=== PATIENT | male | born 1955 | race Caucasian/White ===

== ENCOUNTER 2020-07-24 09:43 | Observation (INO) ==
[2020-07-24] MEDS ORDERED: Charcoal ACTIVATED 25 GM/120 ML BTL PO ONE (09:56)
[2020-07-24 11:08] LABS: ABS Eosinophils 0.1 10^3/ul (0-0.6); ABS Lymphocytes 1.9 10^3/ul (1.0-4.8); ABS Monocytes 0.7 10^3/ul (0-0.8); ABS Neutrophils 4.1 10^3/ul (1.5-7.7); Eosinophil % 1.4 %; Hematocrit 42 % (42-52); Hemoglobin 14.3 g/dL (14.0-18.0); Lymphocyte % 28.3 %; Mean Corpuscular HGB Conc 34 g/dL (31-36); Mean Corpuscular Hemoglobin 33 pg (27-31); Mean Corpuscular Volume 95 fL (80-94); Mean Platelet Volume 7.7 fL (7.4-10.4); Platelet Count 186 10^3/uL (150-450); Red Cell Distribution Width 14 % (10-15); White Blood Count 6.8 10^3/uL (3.5-10.8)
[2020-07-24 11:26] LABS: ALT 15 U/L (7-52); AST 18 U/L (13-39); Albumin 4.1 g/dL (3.2-5.2); Albumin/Globulin Ratio 1.5 (1-3); Alkaline Phosphatase 56 U/L (35-149); Anion Gap 6 mmol/L (2-11); Blood Urea Nitrogen 14 mg/dL (6-24); CO2 Carbon Dioxide 25 mmol/L (22-32); Calcium 9.3 mg/dL (8.6-10.3); Chloride 109 mmol/L (101-111); EGFR African American 165.2 (>60); EGFR Non-African American 136.5 (>60); Globulin 2.8 g/dL (2-4); Glucose 87 mg/dL (70-100); Potassium 4.1 mmol/L (3.5-5.0); Sodium 140 mmol/L (135-145); Total Protein 6.9 g/dL (6.4-8.9)
[2020-07-24] MEDS ORDERED: DIVALPROEX SODIUM 500 MG PO SCH ×2 (11:30→21:00)
[2020-07-24 11:40] LABS: Acetaminophen < 15 mcg/mL; Alcohol, S < 10 mg/dL (<10); Salicylate < 2.50 mg/dL (<30)
[2020-07-24] MEDS ORDERED: LORazepam 2 mg VIAL 1 ml IV PUSH ONE (11:52)
[2020-07-24] MEDS ORDERED: Lorazepam PYXIS KEY PRN (11:52)
[2020-07-24] MEDS ORDERED: Dextrose 50% Syringe 50 ml 25 GM/50 ML SYRINGE IV PUSH ONE (14:10)
[2020-07-24] MEDS ORDERED: Dextrose 50% Syringe 50 ml 25 GM/50 ML SYRINGE ONE (14:12)
[2020-07-24] MEDS ORDERED: Nicotine GUM 4MG FRUIT FLAVOR PO PRN (19:24)
[2020-07-25] MEDS ORDERED: Vitamin THERAPEUTIC TAB PO SCH (09:00)
[2020-07-25 14:22] VITALS: BP 143/73
== END 2020-07-25 13:20 ==
LOC: ED 09:43 → MEDTELE 09:43 → ED 12:44 → ICU 14:58
PROVIDERS: ADMIT Internal Medicine; ATTEND Internal Medicine Critical Care Medicine

== ENCOUNTER 2022-08-23 12:37 | Inpatient (IN) ==
[2022-08-23] MEDS ORDERED: LORazepam 2 mg VIAL 1 ml IM ONE (12:45)
[2022-08-23] MEDS ORDERED: Lactated Ringers 1000 ml BAG 1,000 ML IV ONE (12:58)
[2022-08-23] MEDS ORDERED: Lorazepam PYXIS KEY PRN (13:05)
[2022-08-23] MEDS ORDERED: LORazepam 2 mg VIAL 1 ml IV PUSH ONE (13:05)
[2022-08-23 13:30] LABS: ABS Lymphocytes 2.3 10^3/uL (1.0-4.8); ABS Monocytes 0.5 10^3/uL (0.0-1.1); ABS Neutrophils 4.4 10^3/uL (1.5-7.6); Eosinophil % 0.5 %; Hematocrit 42.5 % (38-53); Hemoglobin 14.7 g/dL (13.2-16.3); Lymphocyte % 31.6 %; Mean Corpuscular Hemoglobin 31.6 pg (27-33); Mean Corpuscular Hgb Conc 34.5 g/dL (31-36); Mean Corpuscular Volume 91.8 fL (80-97); Mean Platelet Volume 7.8 fL (7.5-11.2); Nucleated Red Blood Cells % 0.1 /100 WBC (0.0-0.4); Platelet Count 221 10^3/uL (150-450); Red Blood Count 4.63 10^6/uL (4.06-5.63); Red Cell Distribution Width 13.5 % (12-17); White Blood Count 7.3 10^3/uL (3.6-10.2)
[2022-08-23 13:49] LABS: ALT 12 U/L (7-52); AST 14 U/L (13-39); Albumin 4.2 g/dL (3.2-5.2); Albumin/Globulin Ratio 1.4 (1-3); Alkaline Phosphatase 66 U/L (35-149); Anion Gap 6 mmol/L (2-16); Blood Urea Nitrogen 16 mg/dL (6-24); CO2 Carbon Dioxide 26 mmol/L (22-32); Calcium 9.4 mg/dL (8.6-10.3); Chloride 107 mmol/L (101-111); Creatinine, Serum 0.58 mg/dL (0.67-1.17); Globulin 2.9 g/dL (2-4); Glucose 112 mg/dL (70-100); Potassium 4.2 mmol/L (3.5-5.0); Sodium 139 mmol/L (135-145); Total Protein 7.1 g/dL (6.4-8.9); eGFR CKD-EPI 108.9 (>60)
[2022-08-23 14:10] LABS: Acetaminophen < 15 mcg/mL; Alcohol, S < 13 mg/dL (<13); Salicylate < 2.50 mg/dL (<30); Valproic Acid < 13.0 mcg/mL (50-100)
[2022-08-23 14:19] LABS: TSH Ultra Thyroid Stim Horm 0.22 mcIU/mL (0.34-5.60)
[2022-08-23] MEDS ORDERED: Nicotine GUM 2MG FRUIT FLAVOR PO PRN (15:03)
[2022-08-23] MEDS ORDERED: Al Hydrox/Mg Hydrox/Simet LIQ 30 ML UDC PO PRN (15:03)
[2022-08-24] MEDS ORDERED: OLANZapine IM (NF) 10 MG VIAL IM ONE (11:07)
[2022-08-25] MEDS ORDERED: OLANZapine IM (NF) 10 MG VIAL IM ONE ×2 (09:50→09:57)
[2022-09-02] MEDS ORDERED: chlorproMAZINE 25 MG/ML 2 ML (50 MG) ONE (15:35)
[2022-09-02] MEDS ORDERED: chlorproMAZINE 25 MG/ML 2 ML (50 MG) IM ONE (15:40)
[2022-09-05] MEDS ORDERED: OLANZapine IM (NF) 10 MG VIAL IM PRN (10:34)
[2022-09-05 14:22] LABS: ABS Eosinophils 0.1 10^3/uL (0.0-0.5); ABS Lymphocytes 2.7 10^3/uL (1.0-4.8); ABS Monocytes 0.7 10^3/uL (0.0-1.1); ABS Neutrophils 6.6 10^3/uL (1.5-7.6); ABS Nucleated RBC 0.01 10^3/ul; Eosinophil % 0.6 %; Hematocrit 40.3 % (38-53); Hemoglobin 13.7 g/dL (13.2-16.3); Lymphocyte % 27.1 %; Mean Corpuscular Hemoglobin 31.5 pg (27-33); Mean Corpuscular Volume 92.6 fL (80-97); Mean Platelet Volume 7.7 fL (7.5-11.2); Platelet Count 208 10^3/uL (150-450); Red Blood Count 4.35 10^6/uL (4.06-5.63); Red Cell Distribution Width 12.6 % (12-17); White Blood Count 10.1 10^3/uL (3.6-10.2)
[2022-09-06 08:44] LABS: HDL Cholesterol 57.2 mg/dL
[2022-09-10 14:27] LABS: ABS Eosinophils 0.1 10^3/uL (0.0-0.5); ABS Lymphocytes 2.2 10^3/uL (1.0-4.8); ABS Monocytes 0.6 10^3/uL (0.0-1.1); ABS Neutrophils 4.9 10^3/uL (1.5-7.6); Eosinophil % 1.3 %; Hematocrit 38.8 % (38-53); Hemoglobin 13.5 g/dL (13.2-16.3); Mean Corpuscular Hemoglobin 31.5 pg (27-33); Mean Corpuscular Hgb Conc 34.7 g/dL (31-36); Mean Corpuscular Volume 90.9 fL (80-97); Mean Platelet Volume 7.3 fL (7.5-11.2); Platelet Count 220 10^3/uL (150-450); Red Blood Count 4.27 10^6/uL (4.06-5.63); Red Cell Distribution Width 12.8 % (12-17); White Blood Count 7.8 10^3/uL (3.6-10.2)
[2022-09-10 14:59] LABS: Albumin 3.8 g/dL (3.2-5.2); Albumin/Globulin Ratio 1.3 (1-3); CRP High Sensitivity 4.73 mg/L (<2.00); Calcium 9.4 mg/dL (8.6-10.3); Creatinine, Serum 0.5 mg/dL (0.67-1.17); Globulin 2.9 g/dL (2-4); Potassium 4.2 mmol/L (3.5-5.0); Total Bilirubin 0.3 mg/dL (0.2-1.0); Total Protein 6.7 g/dL (6.4-8.9); eGFR CKD-EPI 113.9 (>60)
[2022-09-10 16:28] LABS: Urine Appearance Clear; Urine Bilirubin Negative (Negative); Urine Blood Negative (Negative); Urine Color Yellow; Urine Glucose Negative (Negative); Urine Ketones Trace (Negative); Urine Nitrite Negative (Negative); Urine Protein Negative (Negative); Urine Specific Gravity 1.019 (1.002-1.030); Urine Urobilinogen Negative (Negative)
[2022-09-12] MEDS ORDERED: Polyethylene Glycol 3350 17 GM PACKET PO PRN (12:11)
[2022-09-14] MEDS: Atropine 1% (ORAL/SL) 15 ML BTL SL SCH (20:41)
[2022-09-15] MEDS: Atropine 1% (ORAL/SL) 15 ML BTL SL SCH (20:52)
[2022-09-16] MEDS: Atropine 1% (ORAL/SL) 15 ML BTL SL SCH (20:45)
[2022-09-17] MEDS: Atropine 1% (ORAL/SL) 15 ML BTL SL SCH (21:43)
[2022-09-18] MEDS: Atropine 1% (ORAL/SL) 15 ML BTL SL SCH (21:50)
[2022-09-18 22:02] LABS: ABS Eosinophils 0.1 10^3/uL (0.0-0.5); ABS Lymphocytes 2.8 10^3/uL (1.0-4.8); ABS Monocytes 0.7 10^3/uL (0.0-1.1); ABS Neutrophils 3.7 10^3/uL (1.5-7.6); Eosinophil % 1.8 %; Hematocrit 36.9 % (38-53); Hemoglobin 12.9 g/dL (13.2-16.3); Lymphocyte % 38.3 %; Mean Corpuscular Volume 91.3 fL (80-97); Mean Platelet Volume 7.2 fL (7.5-11.2); Platelet Count 249 10^3/uL (150-450); Red Blood Count 4.04 10^6/uL (4.06-5.63); Red Cell Distribution Width 12.9 % (12-17); White Blood Count 7.3 10^3/uL (3.6-10.2)
[2022-09-19 10:38] VITALS: BP 137/65
== END 2022-09-19 09:00 | DRG 885 ==
LOC: ED 12:37 → EDHOLD 15:03 → BSU 15:34
PROVIDERS: ADMIT Psychiatry & Neurology Psychiatry; ATTEND Psychiatry & Neurology Psychiatry